=== PATIENT | male | born 1940 | race Caucasian/White ===

== ENCOUNTER 2020-11-21 04:22 | Day surgery (SDC) | payer OTHER ==
[2020-11-20 15:17] VITALS: BMI 26.6
[2020-11-21 10:34] VITALS: TEMP 98
[2020-11-21 10:49] VITALS: BP 146/97; PULSE 77
== END 2020-11-21 11:00 | disposition home or self-care (01) ==
LOC: JASU-ENDO 04:22
PROVIDERS: ATTEND Internal Medicine Gastroenterology
PROC: 0DJD8ZZ Inspection of Lower Intestinal Tract, Via Natural or Artificial Opening Endoscopic (ICD-10-PCS; principal; 2020-11-21 09:45)
DX: Z12.11 Encounter for screening for malignant neoplasm of colon (principal); Z86.010 Personal history of colon polyps; Z85.038 Personal history of other malignant neoplasm of large intestine; N40.0 Benign prostatic hyperplasia without lower urinary tract symptoms; I10 Essential (primary) hypertension; E11.9 Type 2 diabetes mellitus without complications

== ENCOUNTER 2021-01-09 04:25 | Day surgery (SDC) | payer OTHER ==
[2021-01-08 12:32] VITALS: BMI 26.6
[2021-01-09 12:56] VITALS: BP 146/76; PULSE 74; TEMP 98
== END 2021-01-09 12:59 | disposition home or self-care (01) ==
LOC: JASU-ENDO 04:25
PROVIDERS: ATTEND Internal Medicine Gastroenterology
PROC: 0DBN8ZX Excision of Sigmoid Colon, Via Natural or Artificial Opening Endoscopic, Diagnostic (ICD-10-PCS; principal; 2021-01-09 11:00)
DX: Z12.11 Encounter for screening for malignant neoplasm of colon (principal); D12.7 Benign neoplasm of rectosigmoid junction; Z86.010 Personal history of colon polyps; K64.8 Other hemorrhoids; K57.30 Diverticulosis of large intestine without perforation or abscess without bleeding; K63.89 Other specified diseases of intestine
CPT/HCPCS: 88305-TC

== ENCOUNTER 2023-11-22 09:25 | Emergency (ER) | payer OTHER ==
[2023-11-22 09:36] VITALS: BP 134/68; PULSE 97; RESP 18; TEMP 97.5; BMI 26.6
[2023-11-22 11:41] LABS: EPI CELLS 7 /uL (0-25.1); HYALINE CASTS 1 /uL (0-3.1); URINE APPEARANCE CLEAR; URINE BACTERIA 4 /uL (0-1359); URINE BILIRUBIN NEGATIVE (NEGATIVE); URINE COLOR YELLOW; URINE GLUCOSE (UA) NEGATIVE (NEGATIVE); URINE KETONE NEGATIVE (NEGATIVE); URINE LEUK ESTERASE TRACE (NEGATIVE); URINE NITRITE NEGATIVE (NEGATIVE); URINE PROTEIN 2+ (NEGATIVE); URINE RBC 92 /uL (0-23.9); URINE UROBILINOGEN 0.2 mg/dL (0.2-1.0); URINE WBC 91 /uL (0-25.8)
== END 2023-11-22 14:52 | disposition home or self-care (01) ==
LOC: JER 09:25
PROC: 0T9B70Z Drainage of Bladder with Drainage Device, Via Natural or Artificial Opening (ICD-10-PCS; principal; 2023-11-22)
DX: R33.9 Retention of urine, unspecified (principal); R31.9 Hematuria, unspecified
CPT/HCPCS: 51702; 81003; 87086; 99283-25

== ENCOUNTER 2023-12-04 08:18 | Emergency (ER) | payer OTHER ==
[2023-12-04 08:26] VITALS: TEMP 98.4; BMI 25.4
[2023-12-04 09:08] LABS: EPI CELLS 0 /uL (0-25.1); HYALINE CASTS 1 /uL (0-3.1); URINE APPEARANCE CLEAR; URINE BACTERIA 13 /uL (0-1359); URINE BILIRUBIN NEGATIVE (NEGATIVE); URINE COLOR YELLOW; URINE GLUCOSE (UA) NEGATIVE (NEGATIVE); URINE KETONE NEGATIVE (NEGATIVE); URINE LEUK ESTERASE 3+ (NEGATIVE); URINE NITRITE NEGATIVE (NEGATIVE); URINE PROTEIN 2+ (NEGATIVE); URINE RBC 309 /uL (0-23.9); URINE WBC 864 /uL (0-25.8)
[2023-12-04] MEDS ORDERED: CEFTRIAXONE 1 GM/50 ML BAG ONE (09:36)
[2023-12-04] MEDS: CEFTRIAXONE 1,000 MG in DEXTROSE 5%-WATER - 50 ML IVPB ONE (09:45)
[2023-12-04 10:03] VITALS: BP 133/81; PULSE 91; RESP 18
== END 2023-12-04 10:33 | disposition home or self-care (01) ==
LOC: JER 08:18
PROC: 0T9B70Z Drainage of Bladder with Drainage Device, Via Natural or Artificial Opening (ICD-10-PCS; principal; 2023-12-04)
PROC: 3E03329 Introduction of Other Anti-infective into Peripheral Vein, Percutaneous Approach (ICD-10-PCS; 2023-12-04)
DX: N13.9 Obstructive and reflux uropathy, unspecified (principal); N30.01 Acute cystitis with hematuria; R14.0 Abdominal distension (gaseous); R33.9 Retention of urine, unspecified; R10.84 Generalized abdominal pain
CPT/HCPCS: 51702; 81003; 87086; 96365; 99284-25

== ENCOUNTER 2025-03-05 06:46 | Day surgery (SDC) | payer OTHER ==
[2025-03-01 11:04] VITALS: BMI 26.9
[2025-03-05 08:41] VITALS: TEMP 97.5
[2025-03-05 09:21] VITALS: BP 121/62; PULSE 77; RESP 16
== END 2025-03-05 09:20 | disposition home or self-care (01) ==
LOC: JASU-ENDO 06:46
PROVIDERS: ATTEND Internal Medicine Gastroenterology
PROC: 0DBN8ZX Excision of Sigmoid Colon, Via Natural or Artificial Opening Endoscopic, Diagnostic (ICD-10-PCS; 2025-03-05)
PROC: 0DBM8ZX Excision of Descending Colon, Via Natural or Artificial Opening Endoscopic, Diagnostic (ICD-10-PCS; principal; 2025-03-05 08:00)
DX: Z12.11 Encounter for screening for malignant neoplasm of colon (principal); D12.4 Benign neoplasm of descending colon; D12.5 Benign neoplasm of sigmoid colon; K57.30 Diverticulosis of large intestine without perforation or abscess without bleeding; K55.20 Angiodysplasia of colon without hemorrhage; N40.0 Benign prostatic hyperplasia without lower urinary tract symptoms; Z85.038 Personal history of other malignant neoplasm of large intestine; Z86.0100 Personal history of colon polyps, unspecified; Z98.0 Intestinal bypass and anastomosis status
CPT/HCPCS: 82962; 88305-TC